=== PATIENT | male | born 1955 | race Hispanic/Latino ===

== ENCOUNTER 2019-09-19 20:16 | Inpatient (IN) | payer MEDICARE ==
[2019-09-19] MEDS ORDERED: IBUPROFEN 600 MG TABLET ONE (20:57)
[2019-09-19] MEDS ORDERED: LIDOCAINE 5% TOPICAL PATCH TP ONE (20:57)
[2019-09-19 22:35] LABS: BASOPHILS % (AUTO) 0.5 % (0.0-5.0); EOSINOPHILS % (AUTO) 2.4 % (0.0-8.0); HEMATOCRIT 42.5 % (42-54); LYMPHOCYTES % (AUTO) 19.3 % (21.0-51.0); MEAN CORPUSCULAR HEMOGLOBIN 31.5 pg (27.0-33.0); MEAN CORPUSCULAR HGB CONC 35.1 g/dL (32.0-36.0); MEAN CORPUSCULAR VOLUME 89.7 fL (79-99); MONOCYTES % (AUTO) 10.9 % (3.0-13.0); NEUTROPHILS % (AUTO) 66.9 % (40.0-77.0); NUCLEATED RED BLOOD CELLS 0.1 % (0.0-0.19); PLATELET COUNT (AUTO) 149 K/uL (130-400); RED BLOOD CELL COUNT(AUTO) 4.74 MIL/uL (4.50-6.20); RED CELL DISTRIBUTION WIDTH 13.6 % (11.0-15.5); WHITE BLOOD COUNT (AUTO) 7.2 K/uL (4.8-10.8)
[2019-09-19 22:36] LABS: APPEARANCE,URINE Turbid (CLEAR); BILIRUBIN,URINE Negative (NEGATIVE); COLOR,URINE Yellow (YELLOW); GLUCOSE, URINE (UA) Negative (NEGATIVE); KETONES,URINE Negative (NEGATIVE); LEUKOCYTE ESTERASE ,URINE Small (NEGATIVE); NITRATE,URINE Negative (NEGATIVE); OCCULT BLOOD,URINE Nonhemolyzed Trace (NEGATIVE); PH,URINE >=9.0 (5.0-8.0); PROTEIN,URINE Negative (NEGATIVE)
[2019-09-19] MEDS ORDERED: CEFTRIAXONE SODIUM 1 GM ONE (22:40)
[2019-09-19 22:44] LABS: CREATININE 0.9 mg/dL (0.5-1.5); POTASSIUM 4.2 mmol/L (3.5-5.1)
[2019-09-19 22:48] LABS: ALBUMIN 3.4 g/dL (3.5-5.0); BILIRUBIN,DIRECT 0.1 mg/dL (0.0-0.3); BILIRUBIN,TOTAL 0.3 mg/dL (0.2-1.0); TOTAL PROTEIN, SERUM 7.2 g/dL (6.0-8.3)
[2019-09-19 23:04] LABS: AMORPHOUS SEDIMENT,UR Many /LPF (None Seen); BACTERIA,URINE Few /HPF (None Seen); RBC,URINE None Seen /HPF (0-1); SQUAMOUS EPITHELIAL CELL,UR Moderate /HPF (0-2)
[2019-09-19] MEDS ORDERED: LACTULOSE 20 GM/30 ML UDCUP PO PRN (23:30)
[2019-09-19] MEDS ORDERED: IPRATROPIUM/ALBUTEROL SULFATE 3 ML SOLUTION IH PRN (23:30)
[2019-09-19] MEDS ORDERED: MORPHINE SULFATE 2 MG/ML 1ML SYG IV PRN (23:30)
[2019-09-19] MEDS ORDERED: ACETAMINOPHEN 325 MG TAB PO PRN ×2 (23:30)
[2019-09-19] MEDS ORDERED: ONDANSETRON HCL 4 MG/2 ML VIAL IV PRN (23:30)
[2019-09-19] MEDS ORDERED: HYDRALAZINE HCL 20 MG/ML VIAL IV PRN (23:30)
[2019-09-19] MEDS ORDERED: LEVOFLOXACIN 500 MG TABLET ONE (23:31)
[2019-09-20] MEDS ORDERED: BENZONATATE 100 MG CAPSULE PO PRN (00:15)
[2019-09-20 03:30] LABS: BASOPHILS % (AUTO) 1.1 % (0.0-5.0); EOSINOPHILS % (AUTO) 3.9 % (0.0-8.0); HEMATOCRIT 42.5 % (42-54); LYMPHOCYTES % (AUTO) 25.5 % (21.0-51.0); MEAN CORPUSCULAR HGB CONC 34.8 g/dL (32.0-36.0); MONOCYTES % (AUTO) 11.7 % (3.0-13.0); NEUTROPHILS % (AUTO) 57.8 % (40.0-77.0); NUCLEATED RED BLOOD CELLS 0.1 % (0.0-0.19); PLATELET COUNT (AUTO) 136 K/uL (130-400); RED BLOOD CELL COUNT(AUTO) 4.77 MIL/uL (4.50-6.20); RED CELL DISTRIBUTION WIDTH 13.2 % (11.0-15.5)
[2019-09-20 03:50] LABS: BILIRUBIN,TOTAL 0.2 mg/dL (0.2-1.0); CREATININE 0.9 mg/dL (0.5-1.5); POTASSIUM 4.2 mmol/L (3.5-5.1); TOTAL PROTEIN, SERUM 6.7 g/dL (6.0-8.3)
[2019-09-20 08:00] VITALS: BP 143/78
--- NOTE | 2019-09-20 08:20 | NUR ---
PT ADMISSION FROM .ER. WITH A STAFF AT THE BED SIDE FROM ER. FROM THE [facility] . . PT IS NOT ABLE TO SPEAK CLEARLY. STAFF IS NOT ABLE TO GIVE INFORMATION REGARDING HIS CARE. OR HISTORY.. WILL CALL THE [facility] FOR INFORMATION . ORD HIS BREAKFAST .. BED LEVEL DOWN . NOTED PT CAME IN WITH A PRIETO CATHETER AND IS PATENT TO THE PRIETO CATHETER BAG OF CLEAR YELLOW URINE.
--- NOTE | 2019-09-20 08:21 | NUR ---
CORRECTION . FROM [facility]. PT IS FROM [facility] . PT HISTORY IS NOT CLEAR, WITH SOME OF HIS HISTORY PT IS NONVERBAL DUE TO SOME. 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 BUT [place] COMMUNICATE WITH SOME SIGH LANGUAGE AND GETURES WHEN ASK QUESTIONS UNABLE TO OBTAIN ALL INFORMATION OF HIS ADMISSION DATA BASE ,NO FAMILY.
[2019-09-20] MEDS ORDERED: BENZONATATE 100 MG CAPSULE PO SCH (09:00)
[2019-09-20] MEDS ORDERED: CEFTRIAXONE SODIUM 1 GM IV SCH (09:00)
[2019-09-20] MEDS: FAMOTIDINE 20MG TAB 20 MG TAB PO SCH ×2 (09:00→21:34)
[2019-09-20] MEDS: ENOXAPARIN SODIUM 30 MG/0.3 ML SQ SCH (09:00)
[2019-09-20] MEDS: SODIUM CHLORIDE 0.9% 1000ML 1,000 ML IV SCH ×4 (09:16→21:34)
[2019-09-20 12:20] VITALS: BP 143/80
[2019-09-20] MEDS ORDERED: SODIUM CHLORIDE 3% FOR INHALATION 4 ML/AMP VIAL.NEB IH ONE ×2 (13:48→19:30)
[2019-09-20] MEDS: MEROPENEM 1 GM VIAL IVP SCH ×2 (14:12→21:33)
[2019-09-20] MEDS ORDERED: OXYB5TAB4 PO (14:21)
[2019-09-20] MEDS ORDERED: CALC-190 PO (14:21)
[2019-09-20] MEDS ORDERED: TAMS-1 PO (14:21)
[2019-09-20 16:00] VITALS: BP 130/70
--- NOTE | 2019-09-20 17:50 | NUR ---
INITIAL: Information obtained from Medical Record and [facility] caregiver Maranda. Per Maranda pt is a resident @ [facility]. He was previously using a rollator for ambulation and staff @ facility assists w ADLs. Andrey Low, pt's brother Dimitrios is decision maker. Call placed to phone number on facesheet for Dimitrios, however states not a working number. CM to continue to follow for dcp. Addendum: 09/20/19 at 1752 by ROMINA SALEEM Amended: Links added.
[2019-09-20 19:50] VITALS: BP 154/78
[2019-09-20 23:42] VITALS: BP 126/74
[2019-09-21] MEDS ORDERED: SODIUM CHLORIDE 3% FOR INHALATION 4 ML/AMP VIAL.NEB IH ONE (01:24)
[2019-09-21 03:56] VITALS: BP 141/71
[2019-09-21] MEDS: MEROPENEM 1 GM VIAL IVP SCH (05:28)
--- NOTE | 2019-09-21 06:30 | NUR ---
STATUS Pt slept well.No distress noted.
[2019-09-21 08:00] VITALS: BP 131/74
--- NOTE | 2019-09-21 08:00 | NUR ---
PT SMILING . HAPPY . REVIEW CARE. BROTHER AT THE BEDSIDE, UPDATE . PLAN OF CARE. AND SPEECH EVAL TODAY , DUE TO COUGHING NOTED WHILE EATING HIS DIET . INTAKE .AND ASSESSMENT . OF YESTERDAY . PROTOCOL RE VIEW FOR BEDSIDE SWALLOWING . EVAL . AGREE OF EDUCATION AND CARE. PT. ASSIT ALSO UP IN CHAIR .FOR DIET . BREAKFAST. CALL LIGHT IN [facility]. .
[2019-09-21] MEDS: FAMOTIDINE 20MG TAB 20 MG TAB PO SCH ×2 (10:37→20:01)
[2019-09-21] MEDS: CEFTRIAXONE SODIUM 2 GM VIAL IVP SCH (10:37)
[2019-09-21] MEDS: AZITHROMYCIN 500MG+NS 250ML 250 ML IV SCH (10:37)
[2019-09-21] MEDS: ENOXAPARIN SODIUM 30 MG/0.3 ML SQ SCH (10:38)
[2019-09-21 12:00] VITALS: BP 120/72
--- NOTE | 2019-09-21 13:24 | NUR ---
DYSPHAGIA EVAL AND MBSS COMPLETED. +ASPIRATION WITH THIN, NECTAR AND HONEY-THICK LIQUIDS. RECOMMEND FINELY CHOPPED, PUDDING-THICK LIQUIDS; PILLS CRUSHED WITH APPLESAUCE. RECOMMENDATIONS: 1. SKILLED SPEECH THERAPY RECOMMENDED 3-5XWK FOR 2 WEEKS TO ENSURE COMPLIANCE WITH DIET AND DIET TOLERANCE. LTG1: PT WILL TOLERATE LEAST RESTRICTIVE DIET WITH NO OVERT S/S OF ASPIRATION FOR ALL MEALS AND SNACKS. STG1: Pt WILL TOLERATE FINELY CHOPPED, PUDDING-THICK LIQUIDS WITH NO OVERT S/S OF ASPIRATION. STG2: Pt AND FAMILY WILL DEMONSTRATE USE OF COMPENSATORY STRATEGIES WITH MINIMUM ASSISTANCE WITH 80% ACCURACY. STG3: SKILLED EDUCATION Pt/FAMILY/STAFF. Addendum: 09/21/19 at 1330 by RORY LARES, [facility] Amended: Links added.
[2019-09-21 15:34] VITALS: BP 126/70
--- NOTE | 2019-09-21 17:07 | NUR ---
RD NOTIFICATION Dx: Right 11 rib fracture. Hx: Intellectual disabilities, Spastic paraplegia. Diet: Regular, finely chopped textures, pudding thick liquids. Po intake 75% and has good appetite as per pt and family. Skin intact, no edema noted. Family present during visit and was helping feed the patient. Family stated pt eats well at home and has good appetite. LBM: 09/21. [employer] ASSOCIATE on the case; recommended texture modifications. Please measure patient stature and record; cannot determine patient nutritional needs at this time. RD recommends continue current diet. Assisted feedings with all meals, please. Offer Ensure BID. RD will continue to monitor and follow up as needed. Addendum: 09/21/19 at [address] Amended: Links added.
[2019-09-21 19:00] VITALS: BP 126/76
[2019-09-21] MEDS: CLINDAMYCIN 600 MG/D5% WATER 50 ML IV SCH ×2 (20:01→22:18)
[2019-09-21] MEDS: SODIUM CHLORIDE 0.9% 1000ML 1,000 ML IV SCH (20:01)
[2019-09-21 23:00] VITALS: BP 125/64
[2019-09-22 03:00] VITALS: BP 105/60
[2019-09-22] MEDS: CLINDAMYCIN 600 MG/D5% WATER 50 ML IV SCH ×2 (05:01→14:36)
[2019-09-22] MEDS: SODIUM CHLORIDE 0.9% 1000ML 1,000 ML IV SCH ×2 (05:01→11:16)
[2019-09-22 05:12] LABS: BASOPHILS % (AUTO) 1.2 % (0.0-5.0); EOSINOPHILS % (AUTO) 5.7 % (0.0-8.0); HEMATOCRIT 38.9 % (42-54); MEAN CORPUSCULAR HEMOGLOBIN 31.3 pg (27.0-33.0); MEAN CORPUSCULAR HGB CONC 35.1 g/dL (32.0-36.0); MEAN CORPUSCULAR VOLUME 89.1 fL (79-99); NEUTROPHILS % (AUTO) 46.1 % (40.0-77.0); PLATELET COUNT (AUTO) 150 K/uL (130-400); RED BLOOD CELL COUNT(AUTO) 4.36 MIL/uL (4.50-6.20); RED CELL DISTRIBUTION WIDTH 13.5 % (11.0-15.5); WHITE BLOOD COUNT (AUTO) 6.1 K/uL (4.8-10.8)
[2019-09-22 05:29] LABS: ALBUMIN 2.7 g/dL (3.5-5.0); BILIRUBIN,TOTAL 0.5 mg/dL (0.2-1.0); CREATININE 0.9 mg/dL (0.5-1.5); POTASSIUM 4.5 mmol/L (3.5-5.1); TOTAL PROTEIN, SERUM 6.1 g/dL (6.0-8.3)
--- NOTE | 2019-09-22 06:25 | NUR ---
STATUS Pt slept fairly well.No distress noted.
[2019-09-22 07:00] VITALS: BP 120/79
[2019-09-22] MEDS ORDERED: CLIN300C9 PO (08:54)
[2019-09-22] MEDS: CEFTRIAXONE SODIUM 2 GM VIAL IVP SCH (09:53)
[2019-09-22] MEDS: ENOXAPARIN SODIUM 30 MG/0.3 ML SQ SCH (09:53)
[2019-09-22] MEDS: FAMOTIDINE 20MG TAB 20 MG TAB PO SCH (09:53)
[2019-09-22] MEDS: AZITHROMYCIN 500MG+NS 250ML 250 ML IV SCH (09:53)
[2019-09-22 11:00] VITALS: BP 136/73
--- NOTE | 2019-09-22 11:20 | NUR ---
Physical therapy able to ambulate patient with rolling walker. Patient sitting in bedside chair with call light within reach. Door open and close to nursing station for close observation.
--- NOTE | 2019-09-22 11:55 | NUR ---
SWALLOW TREATMENT Pt REQUIRES CUES TO UTILIZE SAFE SWALLOW PRECAUTION. Pt WITH TOLERANCE OF CURRENT DIET OF FINELY CHOPPED, PUDDING-THICK LIQUIDS. Pt WITH NO OVERT S/S OF ASPIRATION AT THIS TIME. Pt REQUIRES CUES FOR SLOW RATE DURING P.O. RECOMMEND CONTINUED FINELY CHOPPED, PUDDING THICK LIQUIDS. GENERAL FOUNDRY WORKER COORDINATED WITH NURSE VILLALOBOS. NURSE MADE COPIES OF RECOMMENDATIONS AND SAFE SWALLOW PRECAUTIONS TO SEND WITH Pt TO ASSISTED LIVING. Addendum: 09/22/19 at 1159 by RORY LARES, [facility] Amended: Links added.
--- NOTE | 2019-09-22 14:40 | NUR ---
REPORT . GIVEN TO STAFF NURSE LEATHA DONOHUE LVN. FROM .. [facility] . CARE. REGARDING CONT. CARE OF PT , DIET , CHANGES , ACTIVITY TOLERATIONS. AND ANTIBOTICS . AND RESTRICTIONS AND NEEDED CARE WHILE EATING.
--- NOTE | 2019-09-22 16:20 | NUR ---
DISCHARGE SUMMARY WAS REVIEW WITH HIS BROTHER ROSANA. REGARDING HIS . DIET . AND RESTRICTIONS AND CARE AFTER THE MBSS . ASSESSMENT . PT IS GOING BACK TO THE HOME, WITH PRIETO CATHETER PT , CAME WITH IT . . PER BROTHER INFORMATION. PT HAS A APPT. TO SEE THE UROLOGIST. THIS COMING WEEK DUE TO HX OF HIS PROSTATE . SL TO HIS RT UPPER WAS DC, WITH NO HEMATOMA OR REDNESS TO SITE. . PT GOING BACK TO FACILITY WAS STAFF AND HIS BROTHER . .. ANTIBOTICS FROM THE [facility] . [facility]. WAS CALLED AND WILL DELIVER THE ANTIBOTIC . FOR CONT CARE. EDUCATION REGARDING . GIVEN..
== END 2019-09-22 16:15 | disposition home or self-care (01) | DRG 205 ==
LOC: EDH 20:16 → OBSVTOIN 23:16 → EDHIP 23:16 → 3DH 09-20 07:45
PROVIDERS: ADMIT Hospitalist; ATTEND Hospitalist
DX: S22.31XA Fracture of one rib, right side, initial encounter for closed fracture (principal); J18.9 Pneumonia, unspecified organism; E44.0 Moderate protein-calorie malnutrition; F72 Severe intellectual disabilities; G11.4 Hereditary spastic paraplegia; F44.4 Conversion disorder with motor symptom or deficit; Z90.49 Acquired absence of other specified parts of digestive tract; W18.39XA Other fall on same level, initial encounter; Y93.89 Activity, other specified; Y92.89 Other specified places as the place of occurrence of the external cause; Y99.8 Other external cause status; N40.1 Benign prostatic hyperplasia with lower urinary tract symptoms
CPT/HCPCS: 36415; 71101; 71250; 74230; 80048; 80053; 80076; 81001; 85025; 87040; 92526; 92610; 92611; 93005; 94640; 94664; 97039; G0378; J0456; J0696; J1650; J2185; J3490; J7030